=== PATIENT | male | born 1965 | race Caucasian/White ===

== ENCOUNTER → 2024-01-30 08:10 | Outpatient (REF) | payer BC, SELFPAY | LOC: EMG 08:10 | PROVIDERS: ATTENDING PHYSICIAN Orthopaedic Surgery; FAMILY PHYSICIAN Family Medicine | DX: M79.642 Pain in left hand (principal) | CPT/HCPCS: 95886; 95909 ==

== ENCOUNTER 2025-01-02 06:21 | Day surgery (SDC) | payer BC, SELFPAY | END 2025-01-02 09:40 | disposition home or self-care (01) | LOC: GI 06:21 | PROVIDERS: ATTENDING PHYSICIAN Internal Medicine | DX: Z12.11 Encounter for screening for malignant neoplasm of colon (principal); K55.20 Angiodysplasia of colon without hemorrhage; K64.8 Other hemorrhoids; D12.3 Benign neoplasm of transverse colon; D12.0 Benign neoplasm of cecum; D12.2 Benign neoplasm of ascending colon; D12.4 Benign neoplasm of descending colon; Z86.0100 Personal history of colon polyps, unspecified; Z83.719 Family history of colon polyps, unspecified | CPT/HCPCS: 45385; 88305 ==